=== PATIENT | female | born 1945 ===

== ENCOUNTER 2019-03-04 10:12 | Emergency (ER) | payer OTHER ==
[~2019-03-04] VITALS: Ht 170.2 cm; Wt 81.6 kg
[2019-03-04] MEDS ORDERED: LOSARTAN POTAS100 MG (10:19)
[2019-03-04] MEDS ORDERED: JANUVIA100 MG (10:20)
== END 2019-03-04 15:28 | disposition home or self-care (01) ==
LOC: ER 10:12
DX: R07.89 Other chest pain (principal); R42 Dizziness and giddiness